=== PATIENT | female | born 1985 | race African-American/Black ===

== ENCOUNTER 2024-07-18 13:52 | Emergency (ER) | payer OTHER ==
[~2024-07-18] VITALS: Ht 175.3 cm; Wt 105.9 kg
[2024-07-18 13:58] VITALS: TEMP 99
[2024-07-18] MEDS ORDERED: IBUP-1554 PO (15:17)
[2024-07-18] MEDS ORDERED: AMOX-457 PO (15:17)
[2024-07-18] MEDS: PERTUSS(ACELL),DIPH,TET/PF 0.5 ML SYRINGE [ADULT] IM. ONE (15:27)
[2024-07-18] MEDS: HYDROGEN PEROXIDE 118 ML SOLUTION TP ONE (15:27)
[2024-07-18 15:34] VITALS: BP 132/90; PULSE 64; RESP 16; O2SAT 98
== END 2024-07-18 15:38 | disposition home or self-care (01) ==
LOC: EMS 13:52
DX: S61.451A Open bite of right hand, initial encounter (principal); Z91.013 Allergy to seafood; W54.0XXA Bitten by dog, initial encounter; Y93.89 Activity, other specified; Y92.89 Other specified places as the place of occurrence of the external cause; Y99.8 Other external cause status
CPT/HCPCS: 90471; 90715; 99283